=== PATIENT | female | born 1985 | race Two or more races ===

== ENCOUNTER 2024-09-15 18:36 | Emergency (ER) | payer OTHER ==
[~2024-09-15] VITALS: Ht 167.6 cm; Wt 99.8 kg
[2024-09-15] MEDS ORDERED: SYNTHROID50 MCG (19:22)
[2024-09-15 20:07] LABS: HEMATOCRIT 40.3 % (36.0-45.00); HEMOGLOBIN 13.5 g/dL (12.0-15.00); MEAN CELL VOLUME 82.3 fL (80.00-100.00); MEAN CORPUSCULAR HEMOGLOBIN 27.6 pg (27.00-32.0); MEAN CORPUSCULAR HGB CONC 33.5 g/dl (32.0-36.0); PLATELET COUNT 261 K/uL (150-450); RED BLOOD COUNT 4.89 M/uL (4.00-6.00); RED CELL DISTRIBUTION WIDTH 14.3 % (11.5-14.5)
== END 2024-09-15 22:53 | disposition home or self-care (01) ==
LOC: ER 18:38
PROVIDERS: General Practice
DX: O20.9 Hemorrhage in early pregnancy, unspecified (principal); Z3A.01 Less than 8 weeks gestation of pregnancy; Z88.2 Allergy status to sulfonamides

== ENCOUNTER 2024-11-24 06:10 | Day surgery (SDC) | payer OTHER ==
[2024-11-16 09:00] LABS: BASO % 0.2 % (0.1-1.2); EOS # 0.22 (0.04-0.54); EOS % 2.3 % (0.7-7.0); HEMOGLOBIN 12.5 g/dL (11.2-15.7); MEAN CORPUSCULAR HEMOGLOBIN 27.9 pg (25.6-32.2); MONO # 0.61 (0.24-0.82); MONO % 6.5 % (4.7-12.5); NEUT # 6.81 (1.56-6.13); NEUT % 72.4 % (34.0-71.1); PLATELET COUNT 254 K/uL (163-369); RED BLOOD COUNT 4.48 M/uL (3.93-5.22); RED CELL DISTRIBUTION WIDTH 13.5 % (11.6-14.4)
[2024-11-16 09:52] LABS: INR 0.94; PARTIAL THROMBOPLASTIN TIME 24.7 SECONDS (22.0-34.0); PROTHROMBIN TIME 10.3 SECONDS (9.0-11.5)
[2024-11-16 10:03] LABS: ALBUMIN 2.9 gm/dL (3.4-5.0); BILIRUBIN TOTAL 0.28 mg/dL (0.3-1.2); CREATININE SERUM 0.47 mg/dL (0.55-1.02); GFR 149.1; GLOBULINA 3.4 G/DL (2.4-3.5); POTASSIUM 4.33 mEq/L (3.5-5.1); TOTAL PROTEIN 6.3 gm/dL (6.4-8.2)
[~2024-11-24 06:10] MED LIST: FOLIC ACID0.8 M1; OBSTETRIX DHA1 EAC1 PO; SYNTHROID50 MCG; TRANDATE300 MG
[2024-11-24] MEDS ORDERED: POVIDONE-IODINE 118 ML BOTT TOP ONE (13:12)
[2024-11-24] MEDS ORDERED: PROMETHAZINE HCL 50 MG/ML AMPUL IM ONE (14:45)
[2024-11-24] MEDS ORDERED: MORPHINE SULFATE 4 MG/ML VIAL IV PRN (14:45)
[2024-11-24] MEDS ORDERED: ONDANSETRON HCL 2 MG/ML VIAL ONE (20:34)
== END 2024-11-24 21:20 | disposition home or self-care (01) ==
LOC: CIR.AMB 06:10
PROVIDERS: ATTEND Obstetrics & Gynecology
DX: O34.32 Maternal care for cervical incompetence, second trimester (principal); Z3A.15 15 weeks gestation of pregnancy; Z88.2 Allergy status to sulfonamides

== ENCOUNTER 2025-04-11 11:18 | Outpatient (CLI) | payer OTHER | END 2025-04-11 13:21 | disposition home or self-care (01) | LOC: NST 11:18 | PROVIDERS: ATTEND Obstetrics & Gynecology | DX: Z34.83 Encounter for supervision of other normal pregnancy, third trimester (principal) ==

== ENCOUNTER 2025-04-29 11:28 | Outpatient (CLI) | payer OTHER | END 2025-04-29 13:03 | disposition home or self-care (01) | LOC: NST 11:28 | PROVIDERS: ATTEND Obstetrics & Gynecology | DX: Z34.83 Encounter for supervision of other normal pregnancy, third trimester (principal) ==

== ENCOUNTER 2025-05-06 10:01 | Outpatient (CLI) | payer OTHER | END 2025-05-06 10:51 | disposition home or self-care (01) | LOC: NST 10:01 | PROVIDERS: ATTEND Obstetrics & Gynecology | DX: Z34.83 Encounter for supervision of other normal pregnancy, third trimester (principal) ==

== ENCOUNTER 2025-05-09 03:24 | Inpatient (IN) | payer OTHER ==
[~2025-05-09] VITALS: Ht 167.6 cm; Wt 117.0 kg
[2025-05-09] VITALS (11 sets, daily range): BP systolic 126–145; BP diastolic 58–82
[2025-05-09] MEDS ORDERED: MORPHINE SULFATE 4 MG/ML CARTRIDGE IV PRN (03:30)
[2025-05-09] MEDS ORDERED: LEVO-T100 MCG PO (03:42)
[2025-05-09] MEDS ORDERED: PEPCID AC20 MG PO (03:43)
[2025-05-09] MEDS ORDERED: RINGERS SOLUTION,LACTATED 1,000 ML IV SCH (03:45)
[2025-05-09 04:18] LABS: BASO % 0.4 % (0.1-1.2); EOS # 0.17 (0.04-0.54); EOS % 1.6 % (0.7-7.0); LYMPH # 2.14 (1.18-3.74); LYMPH % 19.8 % (19.3-53.1); MEAN PLATELET VOLUME 10.10 fl (9.4-12.4); MONO # 0.83 (0.24-0.82); MONO % 7.7 % (4.7-12.5); NEUT # 7.58 (1.56-6.13); NEUT % 69.9 % (34.0-71.1); RED CELL DISTRIBUTION WIDTH 14.6 % (11.6-14.4)
[2025-05-09 04:52] LABS: INR 0.94
[2025-05-09 04:56] LABS: ALT/SGPT 23.0 U/L (12-78); AST/SGOT 18.0 U/L (15-37); BILIRUBIN TOTAL 0.28 mg/dL (0.3-1.2); BUN CREA RATIO 18.0 (7.0-25.0); CREATININE SERUM 0.5 mg/dL (0.55-1.02); GFR 138.08; GLOBULINA 3.3 G/DL (2.4-3.5); GLUCOSE FASTING 81.0 mg/dL (65-100); OSMOLALITY SERUM 275.0 MOSM/KG (275-295)
[2025-05-09] MEDS ORDERED: LEVOTHYROXINE SODIUM 100 MCG TABLET PO SCH (06:00)
[2025-05-09] MEDS ORDERED: LABETALOL HCL 300 MG TABLET PO SCH (09:00)
[2025-05-09] MEDS ORDERED: OXYTOCIN 20 UNITS/500ML RL PIGGYBAG IV ONE (12:06)
[2025-05-09] MEDS ORDERED: OXYTOCIN 500 ML IV ONE (12:15)
[2025-05-09] MEDS ORDERED: CHLORHEXIDINE GLUCONATE 120 ML BOTTLE TOP ONE (14:23)
[2025-05-09] MEDS ORDERED: OXYTOCIN 20 UNITS/1000ML RL PIGGYBAG IV ONE (14:23)
[2025-05-09] MEDS ORDERED: ERYTHROMYCIN BASE OPHT 1GM EACH TUBE OP ONE (14:23)
[2025-05-09] MEDS ORDERED: LIDOCAINE HCL 1% 10ML VIAL ONE (14:23)
[2025-05-09] MEDS ORDERED: NALOXONE HCL 0.4 MG/ML AMPUL ONE (14:32)
[2025-05-09] MEDS ORDERED: NALOXONE HCL 0.4 MG/ML AMPUL IV STA (15:04)
[2025-05-09] MEDS ORDERED: CARBOPROST TROMETHAMINE 250 MCG/ML AMPUL IM ONE (15:10)
[2025-05-09] MEDS ORDERED: ACETAMINOPHEN WITH CODEINE 1 UDTAB TABLET PO PRN (15:30)
[2025-05-09] MEDS ORDERED: OXYTOCIN 1,000 ML IV SCH (15:30)
[2025-05-09] MEDS ORDERED: CHLORHEXIDINE GLUCONATE 120 ML BOTTLE TP ONE (15:30)
[2025-05-10 00:05] VITALS: BP 101/64
[2025-05-10 08:03] VITALS: BP 119/74
[2025-05-10 15:47] VITALS: BP 110/69
[2025-05-11] VITALS: BP 121/60
[2025-05-11 08:52] VITALS: BP 124/71
== END 2025-05-11 10:33 | disposition home or self-care (01) | DRG 807 ==
LOC: LDR 03:24 → OB/GYN 16:20
PROVIDERS: Obstetrics & Gynecology Gynecology; ADMIT Obstetrics & Gynecology; ATTEND Obstetrics & Gynecology
PROC: 10E0XZZ Delivery of Products of Conception, External Approach (ICD-10-PCS; principal; 2025-05-09)
PROC: 0UQG7ZZ Repair Vagina, Via Natural or Artificial Opening (ICD-10-PCS; 2025-05-09)
PROC: 4A1HXCZ Monitoring of Products of Conception, Cardiac Rate, External Approach (ICD-10-PCS; 2025-05-09)
DX: O71.4 Obstetric high vaginal laceration alone (principal); Z37.0 Single live birth; Z3A.39 39 weeks gestation of pregnancy